=== PATIENT | male | born 1965 | race Caucasian/White ===

== ENCOUNTER → 2016-07-08 | Outpatient (CLI) | payer BC ==
[~2016-07-08] MED LIST: ALLO300T2 PO; ASPEC81 PO; GLUCTAB18 PO; HYDRCRE28 RE; IBUP-1050 PO; INDO-24 PO; LPR25 PO; LPT20 PO; LSN25 PO; MULTTAB PO; NTRGSL4 SL; OMEG10007 PO; PLV75 PO
[2016-07-08 09:49] LABS: AST/SGOT 19 U/L (15-37); BLOOD UREA NITROGEN 26 mg/dl (7-18); BUN/CREATININE RATIO 23.8 (10-20); CALCIUM 8.9 mg/dl (8.5-10.1); CARBON DIOXIDE 28 mmol/L (21-32); CHLORIDE 107 mmol/L (98-107); GLUCOSE 87 mg/dl (70-99); POTASSIUM 3.9 mmol/L (3.5-5.1); SODIUM 141 mmol/L (136-145)
[2016-07-08 09:56] LABS: ALT/SGPT 29 U/L (12-78); CHOLESTEROL 142 mg/dl (0-200); CHOLESTEROL/HDL RATIO 2.7; FERRITIN 291.4 ng/ml (8.0-388.0); HDL CHOLESTEROL 52 mg/dl; LDL CHOLESTEROL CALCULATED 67 mg/dl; TRIGLYCERIDES 117 mg/dl (0-150); URIC ACID 6.7 mg/dl (2.6-7.2); VERY LOW DENSITY LIPOPROT CALC 23 mg/dl
== END | disposition home or self-care (01) ==
LOC: C.LAB1850 07:21
PROVIDERS: ATTEND Internal Medicine
DX: I25.10 Atherosclerotic heart disease of native coronary artery without angina pectoris (principal); E78.00 Pure hypercholesterolemia, unspecified; E83.110 Hereditary hemochromatosis; M10.9 Gout, unspecified

== ENCOUNTER → 2017-01-08 | Outpatient (CLI) | payer BC ==
[2017-01-08 09:40] LABS: BASO % 0.4 %; BASO ABS # 0.02 K/uL (0-0.2); COMPLETE YES; EOS % 2.3 %; HEMATOCRIT 42.7 % (42-52); IG% 0.4 %; LYMPH % 25.9 %; LYMPH ABS # 1.33 K/uL (1.2-3.4); MEAN CELL VOLUME 90.7 fL (80-100); MEAN CORPUSCULAR HEMOGLOBIN 31.8 pg (25-34); MEAN CORPUSCULAR HGB CONC 35.1 g/dl (32-36); MEAN PLATELET VOLUME 10.9 fL (7.4-10.4); MONO % 12.3 %; NEUT % 58.7 %; PLATELET COUNT 166 K/uL (130-400); RED BLOOD COUNT 4.71 M/uL (4.7-6.1); WHITE BLOOD COUNT 5.14 K/uL (4.8-10.8)
[2017-01-08 09:59] LABS: ALT/SGPT 41 U/L (12-78); AST/SGOT 25 U/L (15-37); BLOOD UREA NITROGEN 23 mg/dl (7-18); BUN/CREATININE RATIO 21.1 (10-20); CALCIUM 9.3 mg/dl (8.5-10.1); CARBON DIOXIDE 24 mmol/L (21-32); CHLORIDE 105 mmol/L (98-107); CHOLESTEROL 191 mg/dl (0-200); GLUCOSE 95 mg/dl (70-99); POTASSIUM 3.7 mmol/L (3.5-5.1); SODIUM 136 mmol/L (136-145); URIC ACID 7.2 mg/dl (2.6-7.2)
[2017-01-08 10:04] LABS: CHOLESTEROL/HDL RATIO 3.1; FERRITIN 332.6 ng/ml (8.0-388.0); HDL CHOLESTEROL 61 mg/dl; LDL CHOLESTEROL CALCULATED 115 mg/dl; TRIGLYCERIDES 76 mg/dl (0-150); VERY LOW DENSITY LIPOPROT CALC 15 mg/dl
== END | disposition home or self-care (01) ==
LOC: C.LAB1850 07:04
PROVIDERS: ATTEND Internal Medicine
DX: E78.00 Pure hypercholesterolemia, unspecified (principal); M10.9 Gout, unspecified; E83.110 Hereditary hemochromatosis; I25.10 Atherosclerotic heart disease of native coronary artery without angina pectoris; Z12.5 Encounter for screening for malignant neoplasm of prostate

== ENCOUNTER → 2017-03-04 | Day surgery (SDC) | payer BC ==
[2017-02-23 13:33] VITALS: Ht 175.3 cm; Wt 84.1 kg
[~2017-03-04] VITALS: Ht 175.3 cm; Wt 84.1 kg
[~2017-03-04] MED LIST changes: +ATOR-24 PO; +COEN400C5 PO; -HYDRCRE28 RE; -IBUP-1050 PO; +LIDOCAINE HCL 2% 2 ML VIAL (20MG/ML) ONE; +LISI-789 PO; -LPR25 PO; -LPT20 PO; -LSN25 PO; +MIDAZOLAM HCL 1 MG/ML 2ML VIAL ONE; +ONDANSETRON INJ 2 MG/ML 2 ML VIAL ONE; -PLV75 PO; +PROPOFOL IV EMULSION 10 MG/ML 20 ML VIAL IV ONE; +SODIUM CHLORIDE 0.9% 500ML 500 ML IV ONE
--- NOTE | 2017-03-04 11:00 | Endo History and Physical ---
History & Physical Date of Service: Mar 04, 2017. Chief Complaint: Hx tubular adenoma Referring Physician: Tadeo Morales History of Present Illness 51 yo CM who presents for colonoscopy secondary to history of colon polyps. Past Medical History Cancer, Other Past Surgical History Hx Cardiac Surgery: Yes (HEART CATH-1 STENT) Hx Internal Defibrillator: No Hx Pacemaker: No Hx Abdominal Surgery: No Hx of Implantable Prosthesis: No Hx Post-Op Nausea and Vomiting: No Hx Cancer Surgery: Yes (HANDS/FACE SKIN EXCISION BCC) Hx Thoracic Surgery: No Hx Orthopedic: Yes (LEFT KNEE SX X 5, RT KNEE SX X 1) Hx Urinary Tract Surgery: No Family History Colon CA Social History Smoking Status: Never Smoker Hx Substance Use: No Hx Alcohol Use: Yes (4-5 DRINKS 2 NIGHTS WEEKLY) Allergies Coded Allergies: Penicillins (Verified Allergy, Unknown, RASH, 02/23/17) Current Medications Reported Home Medications Medications Dose Route/Sig Max Daily Dose Days Date Category Coq10 (Coenzyme Q10 (Ubidecarenone)) 400 Mg Cap 1 Cap PO QAM 02/23/17 Reported Zestril (Lisinopril) 2.5 Mg Tab 1 Tab PO QAM 02/23/17 Reported Lipitor (Atorvastatin Calcium) 40 Mg Tab 40 Mg PO QAM 02/23/17 Reported Nitrostat (Nitroglycerin) 0.4 Mg/1 Tab Subl 0.4 Mg SL UD PRN 01/25/14 Rx Aspirin EC Low Dose (Aspirin) 81 Mg Ectab 81 Mg PO QAM 60 01/25/14 Rx Indocin (Indomethacin) 50 Mg Cap 50 Mg PO TID PRN 01/23/14 Reported Osteo Bi-Flex Regular Str (Glucosamine-Chondroitin) 1 Tab Tab 2 Tab PO QAM 10/19/13 Reported [place]-3 (Fish Oil) 1 Ea Cap 1 Cap PO QAM 10/19/13 Reported Zyloprim (Allopurinol) 300 Mg Tab 300 Mg PO QAM 10/19/13 Reported Mvi With Minerals (Multivitamins/Minerals) Tab 1 Tab PO QAM 04/01/12 Reported Vital Signs Weight (Kilograms): 84.09 Height (Feet): 5 Height (Inches): 9 Date Time Temp Pulse Resp B/P (MAP) Pulse Ox O2 Delivery O2 Flow Rate FiO2 03/04/17 10:31 37.0 53 16 152/68 (96) 100 Room Air Physical Exam General Appearance: WD/WN, no apparent distress Respiratory/Chest: Auscultation: breath sounds normal Cardiovascular: Heart Auscultation: RRR Abdomen: Bowel Sounds: normal Inspection & Palpation: soft, non-distended, no tenderness, guarding & rebound Assessment and Plan Assessment: 51 yo CM who presents for colonoscopy secondary to history of colon polyps. Plan: Proceed with colonoscopy.
--- NOTE | 2017-03-04 11:32 | GI REPORT ---
Procedure Date: 03/04/2017 10:56 AM Procedure: Colonoscopy Indications: High risk colon cancer surveillance: Personal history of colonic polyps Medicines: Monitored Anesthesia Care Complications: No immediate complications. Estimated Blood Loss: Estimated blood loss: none. Procedure: Pre-Anesthesia Assessment: - Prior to the procedure, a History and Physical was performed, and patient medications and allergies were reviewed. The patient's tolerance of previous anesthesia was also reviewed. The risks and benefits of the procedure and the sedation options and risks were discussed with the patient. All questions were answered, and informed consent was obtained. Prior Anticoagulants: The patient has taken aspirin, last dose was 1 day prior to procedure. ASA Grade Assessment: III - A patient with severe systemic disease. After reviewing the risks and benefits, the patient was deemed in satisfactory condition to undergo the procedure. After I obtained informed consent, the scope was passed under direct vision. Throughout the procedure, the patient's blood pressure, pulse, and oxygen saturations were monitored continuously. The scope was introduced through the anus and advanced to the terminal ileum. The colonoscopy was performed without difficulty. The patient tolerated the procedure well. The quality of the bowel preparation was good. The terminal ileum, ileocecal valve, appendiceal orifice, and rectum were photographed. Findings: The perianal and digital rectal examinations were normal. Multiple small-mouthed diverticula were found in the sigmoid colon. Non-bleeding internal hemorrhoids were found during retroflexion. The hemorrhoids were small. Impression: - Diverticulosis in the sigmoid colon. - Non-bleeding internal hemorrhoids. - No specimens collected. Recommendation: - Resume previous diet. - Continue present medications. - Repeat colonoscopy in 5 years for surveillance. - Return to primary care physician as previously scheduled. Govind Thomas, DO 03/04/2017 11:32:41 AM This report has been signed electronically. Note Initiated On: 03/04/2017 10:56 AM I attest to the content of the Intraoperative Record and orders documented therein, exceptions below
--- NOTE | 2017-03-04 11:34 | Discharge Instructions ---
Endoscopy Patient Instructions Date / Procedure(s) Performed Mar 04, 2017. Colonoscopy Allergy Information Coded Allergies: Penicillins (Verified Allergy, Unknown, RASH, 02/23/17) Discharge Date / Findings Mar 04, 2017. Diverticulosis Internal hemorrhoids Medication Instructions OK to resume all medications today as prescribed Reported Home Medications Medications Dose Route/Sig Max Daily Dose Days Date Category Coq10 (Coenzyme Q10 (Ubidecarenone)) 400 Mg Cap 1 Cap PO QAM 02/23/17 Reported Zestril (Lisinopril) 2.5 Mg Tab 1 Tab PO QAM 02/23/17 Reported Lipitor (Atorvastatin Calcium) 40 Mg Tab 40 Mg PO QAM 02/23/17 Reported Nitrostat (Nitroglycerin) 0.4 Mg/1 Tab Subl 0.4 Mg SL UD PRN 01/25/14 Rx Aspirin EC Low Dose (Aspirin) 81 Mg Ectab 81 Mg PO QAM 60 01/25/14 Rx Indocin (Indomethacin) 50 Mg Cap 50 Mg PO TID PRN 01/23/14 Reported Osteo Bi-Flex Regular Str (Glucosamine-Chondroitin) 1 Tab Tab 2 Tab PO QAM 10/19/13 Reported [place]-3 (Fish Oil) 1 Ea Cap 1 Cap PO QAM 10/19/13 Reported Zyloprim (Allopurinol) 300 Mg Tab 300 Mg PO QAM 10/19/13 Reported Mvi With Minerals (Multivitamins/Minerals) Tab 1 Tab PO QAM 04/01/12 Reported Provider Instructions Activity Restrictions - No exercising or heavy lifting for 24 hours. - Do not drink alcohol the day of the procedure. - Do not drive a car or operate machinery until the day after the procedure. - Do not make any important decisions or sign important papers in 24 hours after the procedure. Following Day: - Return to full activity which may include returning to work/school. Diet Start your diet with liquids and light foods (jello, soup, juice, toast). Then eat your usual diet if not nauseated. Treatment For Common After Affects For mild abdominal pain, bloating, or excessive gas: - Rest - Eat lightly - Lie on right side Follow-Up Information Follow-up with Tadeo Morales as scheduled Anesthesia Information What You Should Know You have had a procedure that required some medicine to reduce anxiety and discomfort. This treatment is called moderate sedation. After receiving the treatment, you may be sleepy, but you will be able to breathe on your own. The effects of the treatment may last for several hours. Follow these instructions along with Activity/Diet recommendations noted above: * Do NOT do anything where dizziness or clumsiness would be dangerous. * Rest quietly at home today, then you can be up and about tomorrow. * Have a responsible person stay with you the rest of today. * You may have had an I.V. today. If so, you may take the dressing off later today. Recommendations Call your doctor if: * Trouble breathing * Continuous vomiting for more than 24 hours * Temperature above 101 degrees * Severe abdominal pain or bloating * Pain not relieved by pain medicine ordered * There is increased drainage or redness from any incision * A large amount of rectal bleeding greater than 2-3 tablespoons. (If you had a polyp/s removed or have hemorrhoids, a small amount of blood - from the rectum is to be expected.) * You have any unanswered questions or concerns. IN THE EVENT OF A SERIOUS EMERGENCY, GO TO THE NEAREST EMERGENCY ROOM Your discharge instructions were prepared by provider Govind Thomas. Patient Instructions Signature Page Sylvester Dias Patient (or Guardian) Signature/Date: I have read and understand the instructions given to me by my caregivers. Caregiver/RN/Doctor Signature/Date: The above-named patient and/or guardian has received patient instructions on this date. + Original Patient Signature Page (only) stays with chart. Please make copy for patient.
[2017-03-04 12:04] VITALS: BP 123/83; PULSE 46; O2SAT 99
--- NOTE | 2017-03-04 12:13 | Anesthesiology Progress Note ---
Anesthesia Post Op Note Date & Time Mar 04, 2017 at 12:13 Vital Signs Pain Intensity: 0 Vital Signs Past 12 Hours Date Time Temp Pulse Resp B/P (MAP) Pulse Ox O2 Delivery O2 Flow Rate FiO2 03/04/17 12:04 46 18 123/83 (96) 99 Room Air 03/04/17 11:50 51 18 110/71 (84) 98 Room Air 03/04/17 11:35 53 18 117/71 (86) 98 Room Air 03/04/17 10:31 37.0 53 16 152/68 (96) 100 Room Air Notes Mental Status: alert / awake / arousable, participated in evaluation Pt Amnestic to Procedure: Yes Nausea / Vomiting: adequately controlled Pain: adequately controlled Airway Patency, RR, SpO2: stable & adequate BP & HR: stable & adequate Hydration State: stable & adequate Anesthetic Complications: no major complications apparent
== END | disposition home or self-care (01) ==
LOC: C.GI 09:33
PROVIDERS: ATTEND Internal Medicine
DX: Z12.11 Encounter for screening for malignant neoplasm of colon (principal); K57.30 Diverticulosis of large intestine without perforation or abscess without bleeding; K64.8 Other hemorrhoids; Z86.010 Personal history of colon polyps; Z80.0 Family history of malignant neoplasm of digestive organs; Z95.5 Presence of coronary angioplasty implant and graft; Z79.82 Long term (current) use of aspirin; Z79.899 Other long term (current) drug therapy

== ENCOUNTER → 2017-11-04 | Outpatient (CLI) | payer OTHER ==
[~2017-11-04] MED LIST changes: -ASPEC81 PO; +ASPI-320 PO; -LIDOCAINE HCL 2% 2 ML VIAL (20MG/ML) ONE; -MIDAZOLAM HCL 1 MG/ML 2ML VIAL ONE; -ONDANSETRON INJ 2 MG/ML 2 ML VIAL ONE; -PROPOFOL IV EMULSION 10 MG/ML 20 ML VIAL IV ONE; -SODIUM CHLORIDE 0.9% 500ML 500 ML IV ONE
--- NOTE | 2017-11-06 10:39 | Myocardial Perfusion Study ---
Myocardial Perfusion Study Rpt Myocardial Perfusion Study Rpt Myocardial Perfusion Study Rpt ONE DAY NUCLEAR MEDICINE EXERCISE TREADMILL TECHNETIUM 99M MYOCARDIAL PERFUSION SCAN Indication: History of coronary artery disease, new onset dyspnea with exertion. Baseline ECG: Sinus bradycardia, no ST abnormalities. Ventricular rate 47. Stress ECG: No exercise induced ST changes. No arrhythmias. Exercised for 14 minutes, achieving 17.2 METS. HR maire from 47 to 164 representing 98 % MPHR. SBP 110/80 and marie to 155/80. Technique: For the stress portion of the study 32.2 mCi of Technetium 99m Cardiolite IV was injected at 11:35 am on 11/04/2017. 15 minutes following the injection, imaging of the heart was performed in multiple projections. For the rest portion of the study, 10.5 mCi of Technetium 99m Cardiolite was injected IV at 9:40 am. One hour following the injection, imaging of the hear was performed in the same projections. Findings: Rotating raw images were reviewed in detail. Potential sources of attenuation include minimal diaphragmatic attenuation. There was no significant extracardiac pathologic uptake. Short axis, vertical long axis and horizontal long axis images were reviewed in detail. No visual TID. Essentially normal myocardial perfusion on both stress and rest. There was a small, subtle, fixed perfusion defect involving the apex which could represent small prior infarct. Normal LV size. EDV 116 ml. Calculated EF 49%. No regional wall motion abnormalities. SUMMARY: 1. Negative myocardial perfusion study for exercise induced ischemia. 2. Negative exercise ECG for ischemia at 98% MPHR. 3. Above average functional capacity. Achieved 17.2 METS. Normal hemodynamic response to exercise. No exercise induced chest pain. 4. Normal LV size and function. LVEF 49% with no regional wall motion abnormalities.
== END | disposition home or self-care (01) ==
LOC: C.NUCL 09:14
PROVIDERS: ATTEND Internal Medicine Interventional Cardiology
DX: I25.10 Atherosclerotic heart disease of native coronary artery without angina pectoris (principal)